=== PATIENT | male | born 1965 | race Caucasian/White ===

== ENCOUNTER 2022-10-23 08:27 | Emergency (ER) | payer MEDICAID ==
[~2022-10-23] VITALS: Ht 165.1 cm; Wt 100.0 kg
[~2022-10-23 08:27] MED LIST: NOCURR
[2022-10-23 08:33] VITALS: TEMP 97.8
[2022-10-23] MEDS ORDERED: ISON100T34 PO (09:44)
[2022-10-23] MEDS ORDERED: AMOX1255 PO (09:44)
[2022-10-23] MEDS ORDERED: DOLU50TA PO (09:44)
[2022-10-23] MEDS ORDERED: RIFAB150 PO (09:44)
[2022-10-23] MEDS ORDERED: EMTR1TAB13 PO (09:44)
[2022-10-23] MEDS ORDERED: PYRI50CA PO (09:44)
[2022-10-23] MEDS ORDERED: IBUP-1556 PO (09:44)
[2022-10-23] MEDS ORDERED: DEXAMETHASONE SOD PHOS 4 MG/ML 5 ML VIAL IVP ONE (10:30)
[2022-10-23] MEDS ORDERED: DiphenhydrAMINE HCL 50 MG/ML VIAL IVP ONE (10:30)
[2022-10-23 12:08] VITALS: BP 115/66; PULSE 70; RESP 16
[2022-10-23] MEDS ORDERED: PRED-554 PO ×2 (13:06→13:37)
[2022-10-23] MEDS ORDERED: DIPH-543 PO (13:07)
[2022-10-23] MEDS ORDERED: DIPH25CA85 PO (13:37)
== END 2022-10-23 13:55 | disposition home or self-care (01) ==
LOC: EMS 08:29
DX: T78.40XA Allergy, unspecified, initial encounter (principal); X58.XXXA Exposure to other specified factors, initial encounter
CPT/HCPCS: 99284; 96374; 96375; J1100; J1200